=== PATIENT | female | born 1980 | race African-American/Black ===

== ENCOUNTER 2017-06-04 09:12 | Emergency (ER) | payer OTHER ==
[~2017-06-04] VITALS: Ht 172.7 cm; Wt 91.2 kg
[2017-06-04 10:19] VITALS: BP 150/82
== END 2017-06-04 12:01 | disposition home or self-care (01) ==
LOC: ER 09:12
DX: K02.9 Dental caries, unspecified (principal)

== ENCOUNTER 2018-10-23 17:03 | Emergency (ER) | payer MEDICAID, OTHER ==
[~2018-10-23] VITALS: Ht 172.7 cm; Wt 115.7 kg
[2018-10-23 18:56] LABS: Basophils # (auto) 0.1 uL; Basophils % (auto) 0.5 % (0.0-2.0); Eosinophils # (auto) 0 uL; Eosinophils % (auto) 0.1 % (0.0-7.0); Hematocrit 39.9 % (36.0-46.0); Hemoglobin 13.2 g/dL (12.2-16.2); Lymphocytes # (auto) 1.9 uL; Lymphocytes % (auto) 15.6 % (10.0-50.0); Mean Corpuscular Hemoglobin 31.8 pg (28.0-32.0); Mean Corpuscular Hgb Conc. 33.2 g/dL (32.0-36.0); Mean Corpuscular Volume 95.8 fL (80.0-100.0); Monocytes # (auto) 0.8 uL; Monocytes % (auto) 6.6 % (0.0-12.0); Neutrophils # (auto) 9.3 uL; Neutrophils % (auto) 77.2 % (37.0-80.0); Nucleated Red Blood Cells % 0.1 %; Platelet Count (auto) 241 10^3/uL (140-450); Red Blood Cells 4.17 10^6/uL (4.0-5.20); Red Cell Distribution Width 14.5 % (11.8-14.3)
[2018-10-23] MEDS ORDERED: SODIUM CHLORIDE 0.9% 1,000 ML IVB ONE (19:00)
[2018-10-23] MEDS ORDERED: ONDANSETRON HCL 4 MG/2 ML VIAL IV ONE ×2 (19:00→22:30)
[2018-10-23 19:12] LABS: Calcium 8.5 mg/dL (8.5-10.1); Chloride 109 mmol/L (98-107); Potassium 3.8 mmol/L (3.5-5.1); Sodium 141 mmol/L (136-145)
[2018-10-23 19:17] LABS: Alanine Aminotransferase 22 U/L (13-56); Albumin 3.6 g/dL (3.4-5.0); Amylase 31 U/L (25-115); Anion Gap 10 (5-15); Aspartate Aminotransferase 9 U/L (15-37); BUN/Creatinine Ratio 18.3; Blood Alcohol < 3.0 mg/dL (0-5); Blood Urea Nitrogen 13 mg/dL (7-18); Carbon Dioxide 22 mmol/L (21-32); GFR African American 120 mL/min; GFR Non-African American 99 mL/min; Glucose 117 mg/dL (74-106); Lipase 35 U/L (73-393)
[2018-10-23 19:19] LABS: Alkaline Phosphatase 51 U/L (45-117); Bilirubin, Total 0.4 mg/dL (0.2-1.0); Total Protein 7.3 g/dL (6.4-8.2)
[2018-10-23 19:50] LABS: INR 0.95 (0.9-1.15); Partial Thromboplastin Time 25.4 sec (23.64-32.05)
[2018-10-23] MEDS ORDERED: PROMETHAZINE HCL 25 MG/ML 1ML IV ONE (20:45)
[2018-10-23] MEDS ORDERED: metroNIDAZOLE 500MG/100ML 100 ML IV ONE (22:00)
[2018-10-23] MEDS ORDERED: cefTRIAXone 1GM/50ML D5W 50 ML IV ONE (22:00)
[2018-10-23 22:30] VITALS: BP 116/54
[2018-10-23] MEDS ORDERED: MORPHINE SULF INJ 2 MG/ML SYRINGE 1ML IV ONE (22:30)
== END 2018-10-23 23:08 | disposition home or self-care (01) ==
LOC: EDBD 17:03 → ER 17:03
DX: R10.84 Generalized abdominal pain (principal); R11.2 Nausea with vomiting, unspecified; R07.9 Chest pain, unspecified
CPT/HCPCS: 36415; 71045; 74176; 80053; 80320; 82150; 83690; 83735; 84702; 85025; 85610; 85730; 94761; 96361; 96374; 96375; 96376; 99284; J2270; J2405; J2550; J7030; J7040

== ENCOUNTER → 2019-04-25 | Emergency (ER) | payer MEDICAID ==
[~2019-04-25] VITALS: Ht 167.6 cm; Wt 113.4 kg
[~2019-04-25] MED LIST: MORPHINE SULFATE 4 MG/ML SYR/VIAL IV ONE; PANTOPRAZOLE 40 MG/10 ML VIAL INJ IV STA; PROCHLORPERAZINE EDISYLATE 5 MG/ML 2ML VIAL IV ONE; SODIUM CHLORIDE 0.9% 1,000 ML IVB ONE
[2019-04-25 09:07] LABS: Basophils # (auto) 0.1 10 ^3/uL (0-0.2); Basophils % (auto) 0.4 % (0.0-2.0); Eosinophils # (auto) 0 10 ^3/uL (0-0.8); Hematocrit 43.6 % (36.0-46.0); Hemoglobin 14.3 g/dL (12.2-16.2); Lymphocytes # (auto) 1.9 10 ^3/uL (0.4-5.4); Lymphocytes % (auto) 13.1 % (10.0-50.0); Mean Corpuscular Hemoglobin 31.5 pg (28.0-32.0); Mean Corpuscular Hgb Conc. 32.9 g/dL (32.0-36.0); Mean Corpuscular Volume 95.9 fL (80.0-100.0); Monocytes # (auto) 0.9 10 ^3/uL (0-1.3); Neutrophils # (auto) 11.7 10 ^3/uL (1.6-8.6); Neutrophils % (auto) 80.5 % (37.0-80.0); Platelet Count (auto) 298 10^3/uL (140-450); Red Blood Cells 4.55 10^6/uL (4.0-5.20); Red Cell Distribution Width 14.3 % (11.8-14.3); White Blood Cell 14.5 10^3/uL (4.4-10.8)
[2019-04-25 09:22] LABS: Chloride 102 mmol/L (98-107); Potassium 3.6 mmol/L (3.5-5.1); Sodium 136 mmol/L (136-145)
[2019-04-25 09:30] VITALS: BP 175/91
[2019-04-25 09:32] LABS: Alanine Aminotransferase 36 U/L (13-56); Alkaline Phosphatase 72 U/L (45-117); Anion Gap 12 (5-15); Aspartate Aminotransferase 13 U/L (15-37); BUN/Creatinine Ratio 23.1; Bilirubin, Total 0.6 mg/dL (0.2-1.0); Blood Alcohol < 3.0 mg/dL (0-5); Blood Urea Nitrogen 18 mg/dL (7-18); Calcium 9.3 mg/dL (8.5-10.1); Carbon Dioxide 22 mmol/L (21-32); GFR African American 107 mL/min; GFR Non-African American 88 mL/min; Glucose 84 mg/dL (74-106); Lipase 60 U/L (73-393); Total Protein 8.8 g/dL (6.4-8.2)
== END | disposition home or self-care (01) ==
LOC: ER 07:24
DX: F12.988 Cannabis use, unspecified with other cannabis-induced disorder (principal); R11.2 Nausea with vomiting, unspecified; I10 Essential (primary) hypertension; F17.210 Nicotine dependence, cigarettes, uncomplicated
CPT/HCPCS: 36415; 80053; 80320; 83690; 84484; 84702; 85025; 93005; 96361; 96374; 96375; 99284; C9113; J0780; J2270; J7030